=== PATIENT | female | born 1945 | race African-American/Black ===

== ENCOUNTER → 2017-04-21 | Outpatient (RCR) | payer OTHER | END | disposition home or self-care (01) | LOC: PTY 03-31 08:45 | DX: M54.5 Low back pain (principal); G89.29 Other chronic pain; M13.862 Other specified arthritis, left knee; M13.861 Other specified arthritis, right knee | CPT/HCPCS: 97110; 97140; 97161; G0283 ==

== ENCOUNTER 2017-05-05 14:30 | Outpatient (RCR) | payer OTHER | END 2017-05-22 | disposition home or self-care (01) | LOC: PTY 14:30 | DX: M54.5 Low back pain (principal); G89.29 Other chronic pain | CPT/HCPCS: 97110; 97140; G0283 ==

== ENCOUNTER 2017-06-09 08:50 | Outpatient (RCR) | payer OTHER | END 2017-06-22 | disposition home or self-care (01) | LOC: PTY 08:50 | DX: M54.5 Low back pain (principal); G89.29 Other chronic pain; M19.90 Unspecified osteoarthritis, unspecified site; E11.9 Type 2 diabetes mellitus without complications; Z96.653 Presence of artificial knee joint, bilateral | CPT/HCPCS: 97110; 97140; G0283 ==

== ENCOUNTER 2017-06-29 08:53 | Outpatient (RCR) | payer OTHER | END 2017-07-20 | disposition home or self-care (01) | LOC: PTY 08:53 | DX: M54.5 Low back pain (principal); G89.29 Other chronic pain; M19.90 Unspecified osteoarthritis, unspecified site; E11.9 Type 2 diabetes mellitus without complications; Z96.653 Presence of artificial knee joint, bilateral | CPT/HCPCS: 97110; 97140; G0283 ==

== ENCOUNTER 2017-07-27 09:30 | Outpatient (RCR) | payer OTHER | END 2017-08-20 | disposition home or self-care (01) | LOC: PTY 09:30 | DX: M54.5 Low back pain (principal); G89.29 Other chronic pain ==